=== PATIENT | female | born 1985 | race Caucasian/White ===

== ENCOUNTER 2024-09-19 09:45 | Outpatient (OUT) | payer OTHER, SELFPAY ==
--- NOTE | 2024-09-19 09:58 | XR_ITS ---
[facility] [place] [id number] Patient Name: JONATHON GUDINO MRN: [id number] date: 1985 Sex: F Assigned Patient Location: [facility] Current Patient Location: [facility] Accession/Order Number: [id number] Exam Date: 09/19/2024 10:33 Report Date: 09/19/2024 10:34 At the request of: WENDI ELIAS MD Procedure: XR wrist RT min 3V RIGHT WRIST - 3 views COMPARISON: None CLINICAL DATA: Right wrist pain, greater laterally. The past couple weeks. Numbness and tingling at the fingers. AP, lateral and oblique views were obtained. There is no acute fracture or dislocation. No joint space narrowing or hypertrophy is seen. No soft tissue swelling is noted. XR/XR wrist RT min 3V IMPRESSION: NO ACUTE BONY FINDINGS. Impression dictated by: Claudia Metzger M.D. 09/19/2024 10:34 AM Dictation Location: [place] [address] Electronically authenticated by: [id number] Y Date: 09/19/2024 10:34
== END 2024-09-19 09:46 | disposition home or self-care (01) ==
LOC: RAD 09:51
PROVIDERS: Visit Provider Preventive Medicine Preventive Medicine/Occupational Environmental Medicine
DX: M25.531 Pain in right wrist (principal)
CPT/HCPCS: 73110